=== PATIENT | male | born 1990 | race Two or more races ===

== ENCOUNTER 2021-06-11 11:27 | Emergency (ER) | payer SELFPAY ==
[2021-06-11] MEDS ORDERED: Albuterol/Ipratropium 3.0-0.5 MG/3 ML Neb Soln NEB ONE (11:55)
--- NOTE | 2021-06-11 12:39 | EDM.PDOC ---
ED HPI GENERAL MEDICAL PROBLEM - General Chief Complaint: Respiratory Problem Stated Complaint: ASTHMA Time Seen by Provider: 06/11/21 11:37 Source of Information: Reports: Patient, RN Notes Reviewed - History of Present Illness INITIAL COMMENTS - FREE TEXT/NARRATIVE: 31 yr old male comes in with wheezing, dyspnea, hx asthma, working from away from home and has run out of his inhalers. Dry nonprod. cough. No fever or chills. Right Chest Pain Score (Numeric/FACES): 8 - Related Data Allergies Allergy/AdvReac Type Severity Reaction Status Date / Time No Known Allergies Allergy Verified 06/11/21 11:39 Home Meds: Home Meds . [No Known Home Meds] 06/11/21 [History] Past Medical History Respiratory History: Reports: Asthma - Past Surgical History GI Surgical History: Reports: Appendectomy, Cholecystectomy Neurological Surgical History: Reports: Other (See Below) Other Neurological Surgeries/Procedures: Pinched Nerve Removed from R) Arm Social & Family History - Tobacco Use Tobacco Use Status *Q: Current Some Day Tobacco User Years of Tobacco use: 12 Packs/Tins Daily: 0.1 - Caffeine Use Caffeine Use: Reports: Energy Drinks - Recreational Drug Use Recreational Drug Use: Yes Recreational Drug Type: Reports: Marijuana/Hashish ED ROS GENERAL - Review of Systems Review Of Systems: See Below Constitutional: Denies: Fever, Chills HEENT: Reports: Rhinitis (mild). Denies: Throat Pain Respiratory: Reports: Shortness of Breath, Wheezing Cardiovascular: Reports: Chest Pain (occasional) Musculoskeletal: Reports: No Symptoms Skin: Reports: No Symptoms Neurological: Reports: No Symptoms ED EXAM, GENERAL - Physical Exam Exam: See Below General Appearance: Alert, Mild Distress Head: Atraumatic Neck: Supple Respiratory/Chest: No Accessory Muscle Use, Respiratory Distress (mild tachypnea), Wheezing (mild bilat). No: Rhonchi, Retractions Cardiovascular: Regular Rate, Rhythm Extremities: Normal Inspection Skin Exam: Warm, Dry, Normal Color Course - Vital Signs Last Recorded V/S: Last Vital Signs Temp 97.4 F 06/11/21 11:35 Pulse 88 06/11/21 11:35 Resp 20 06/11/21 11:35 BP 139/78 06/11/21 11:35 Pulse Ox 100 06/11/21 11:55 - Orders/Labs/Meds Meds: Medications Discontinued Medications Generic Name Dose Route Start Last Admin Trade Name Scarlett PRN Reason Stop Dose Admin Albuterol/Ipratropium 3 ml 06/11/21 11:55 06/11/21 12:08 Albuterol/Ipratropium 3.0-0.5 Mg/3 Ml Neb Soln NEB 06/11/21 11:56 3 ml ONETIME ONE Administration - Re-Assessments/Exams Free Text/Narrative Re-Assessment/Exam: 06/11/21 13:30 CXR normal, discharge instr. as documented. Departure - Departure Time of Disposition: 12:37 Disposition: Home, Self-Care 01 Clinical Impression: Acute asthma - Discharge Information Instructions: Asthma, Adult, [id number] Referrals: PCP,None [Primary Care Provider] - Forms: ED Department Discharge, ED Return to Work/School Form Additional Instructions: Albuterol inhaler q 4 hr as needed, home nebs q 4 to 6 hr as needed. Follow up with your regular medical provider if not much better within 3 to 5 days as expected. Sepsis Event Note (ED) - Evaluation Sepsis Screening Result: No Definite Risk - Focused Exam Vital Signs: Vital Signs Temp Pulse Resp BP Pulse Ox Pulse Ox 06/11/21 11:55 100 06/11/21 11:35 97.4 F 88 20 139/78 99
--- NOTE | 2021-06-11 13:15 | CR ---
Chest: Portable view of the chest was obtained. Comparison: No prior chest imaging is available. Heart size and mediastinum are normal. Lungs are clear with no acute parenchymal change. Bony structures show nothing acute. Impression: 1. Nothing acute is seen on portable chest x-ray. Diagnostic code #1
== END 2021-06-11 12:51 | disposition home or self-care (01) ==
LOC: JD.ED 11:27
DX: J45.909 Unspecified asthma, uncomplicated (principal); Z72.0 Tobacco use
CPT/HCPCS: 71045; 71045-26; 94640; 99283; 99285-25; J7620-GY